=== PATIENT | male | born 1980 | race Caucasian/White ===

== ENCOUNTER 2019-08-30 16:31 | Inpatient (IN) | payer BC, OTHER ==
--- NOTE | 2019-08-30 16:34 | ERPHSYRPT ---
- History of Present Illness Time Seen by Provider: 08/30/19 17:10 Source: patient, family Exam Limitations: clinical condition Physician History: 39 y/o obese white male presents with 3 day h/o first left lower quadrant abd pain followed by n/v/d fever and body aches. temperature as high as 104.7 F. pt was getting confused at home. pt took tylenol earlier today but could not hold it down. never had anything like this before. pt denies photophobia and denies neck pain. Timing/Duration: day(s) (3), worse Severity: moderate Modifying Factors: Improves With: acetaminophen (could not hold down) Associated Symptoms: nausea, vomiting, abdominal pain, loss of appetite, weakness, other (diarrhea) Allergies/Adverse Reactions: BEESTINGS Allergy (Severe, Uncoded 08/30/19 17:09) Home Medications: Ranitidine HCl [Zantac 75] 75 mg PO DAILY 08/30/19 [History] Hx Tetanus, Diphtheria Vaccination/Date Given: No Hx Influenza Vaccination/Date Given: No Hx Pneumococcal Vaccination/Date Given: No - Review of Systems Constitutional: Fever, Weakness Eyes: No Symptoms Ears, Nose, & Throat: No Symptoms Respiratory: No Symptoms Cardiac: No Symptoms Abdominal/Gastrointestinal: Abdominal Pain, Nausea, Vomiting, Diarrhea Genitourinary Symptoms: No Symptoms Musculoskeletal: No Symptoms Skin: No Symptoms Neurological: No Symptoms Psychological: No Symptoms Endocrine: No Symptoms Hematologic/Lymphatic: No Symptoms Immunological/Allergic: No Symptoms All Other Systems: Reviewed and Negative - Past Medical History Pertinent Past Medical History: Yes Neurological History: No Pertinent History ENT History: No Pertinent History Cardiac History: No Pertinent History Respiratory History: No Pertinent History Endocrine Medical History: No Pertinent History Musculoskeletal History: No Pertinent History GI Medical History: GERD History: No Pertinent History Psycho-Social History: No Pertinent History Male Reproductive Disorders: No Pertinent History - Past Surgical History Past Surgical History: Yes Neuro Surgical History: No Pertinent History Cardiac: No Pertinent History Respiratory: No Pertinent History Gastrointestinal: Hernia Repair Genitourinary: No Pertinent History Musculoskeletal: No Pertinent History Male Surgical History: No Pertinent History Other Surgical History: egd - Social History Smoking Status: Never smoker Exposure to second hand smoke: No Drug Use: none Patient Lives Alone: No - Nursing Vital Signs Nursing Vital Signs: Initial Vital Signs Temperature 102.7 F 08/30/19 16:53 Pulse Rate 100 H 08/30/19 16:53 Respiratory Rate 26 H 08/30/19 16:53 Blood Pressure 113/73 08/30/19 16:53 O2 Sat by Pulse Oximetry 97 08/30/19 16:53 Pain Scale Pain Intensity 0 - Physical Exam General Appearance: moderate distress, alert, obese Eye Exam: PERRL/EOMI, eyes nml inspection Ears, Nose, Throat Exam: normal ENT inspection, dry mucous membranes Neck Exam: normal inspection, non-tender, supple, full range of motion Respiratory Exam: normal breath sounds, lungs clear, airway intact, No chest tenderness, No respiratory distress Cardiovascular Exam: regular rate/rhythm, normal heart sounds, normal peripheral pulses Gastrointestinal/Abdomen Exam: soft, normal bowel sounds, tenderness (mild left lower quad), No guarding, No rebound Rectal Exam: not done Back Exam: normal inspection, normal range of motion, No CVA tenderness, No vertebral tenderness Extremity Exam: normal inspection, normal range of motion, pelvis stable Neurologic Exam: alert, oriented x 3, cooperative, prepress specialist II-XII nml as tested Skin Exam: normal color, warm, dry Lymphatic Exam: No adenopathy SpO2 Interpretation: normal O2 Delivery: Room Air - Course Nursing assessment & vital signs reviewed: Yes Ordered Tests: Active Orders 24 hr Category Date Time Status IV Insertion STAT Care 08/30/19 16:51 Active ABDOMEN AND PELVIS W/0 CONTRAS [CT] Stat Exams 08/30/19 18:25 Taken CHEST 1 VIEW (PORTABLE) Stat Exams 08/30/19 20:53 Taken BLOOD CULTURE Stat Lab 08/30/19 17:52 Received CBC W DIFF Stat Lab 08/30/19 17:10 Completed CMP Stat Lab 08/30/19 17:10 Completed Lactic Acid Stat Lab 08/30/19 17:22 Completed [place] Screen Stat Lab 08/30/19 Completed UA W/RFX UR CULTURE Stat Lab 08/30/19 19:30 Completed Transfer Order Routine Transfer 08/30/19 Ordered Medication Summary Generic Name Dose Route Start Last Admin Trade Name Freq PRN Reason Stop Dose Admin Sodium Chloride 1,000 mls @ 999 mls/hr 08/30/19 20:54 08/30/19 21:20 Sodium Chloride 0.9% 1000 Ml IV 08/30/19 21:54 999 mls/hr .Q1H1M STA Administration Discontinued Medications Generic Name Dose Route Start Last Admin Trade Name Levon PRN Reason Stop Dose Admin Acetaminophen 650 mg 08/30/19 18:25 08/30/19 18:31 Tylenol 325 Mg PO 08/30/19 18:26 650 mg STAT STA Administration Acetaminophen Confirm 08/30/19 18:29 Tylenol 325 Mg Administered 08/30/19 18:30 Dose 650 mg .ROUTE .STK-MED ONE Hydromorphone HCl 0.5 mg 08/30/19 19:16 08/30/19 19:26 Hydromorphone 1 Mg/Ml Ampule IV 08/30/19 19:17 0.5 mg STAT ONE Administration Hydromorphone HCl Confirm 08/30/19 19:25 Hydromorphone 1 Mg/Ml Ampule Administered 08/30/19 19:26 Dose 1 mg .ROUTE .STK-MED ONE Sodium Chloride Confirm 08/30/19 16:49 Sodium Chloride 0.9% 1000 Ml Administered 08/30/19 16:50 Dose 1,000 mls @ ud .ROUTE .STK-MED ONE Sodium Chloride 1,000 mls @ 999 mls/hr 08/30/19 16:51 08/30/19 18:15 Sodium Chloride 0.9% 1000 Ml IV 08/30/19 17:51 Infused .Q1H1M STA Infusion Sodium Chloride Confirm 08/30/19 18:22 Sodium Chloride 0.9% 1000 Ml Administered 08/30/19 18:23 Dose 1,000 mls @ ud .ROUTE .STK-MED ONE Sodium Chloride 1,000 mls @ 999 mls/hr 08/30/19 18:26 08/30/19 19:32 Sodium Chloride 0.9% 1000 Ml IV 08/30/19 19:26 Infused .Q1H1M STA Infusion Ceftriaxone Sodium/Dextrose 1 g in 50 mls @ 100 mls/hr 08/30/19 21:09 21:20 Rocephin 1 Gm-D5w 50 Ml Bag IV 08/30/19 21:38 100 ml/hr STAT STA 100 mls/hr Administration Azithromycin 500 mg in 250 mls @ 250 mls/hr 08/30/19 21:09 08/30/19 21:21 Zithromax 500 Mg/ 250 Ml Nacl Premix IV 08/30/19 22:08 250 ml/hr STAT STA 250 mls/hr Administration Azithromycin Confirm 08/30/19 21:14 Zithromax 500 Mg/ 250 Ml Nacl Premix Administered 08/30/19 21:15 Dose 500 mg in 250 mls @ ud IV .STK-MED ONE Sodium Chloride Confirm 08/30/19 21:14 Sodium Chloride 0.9% 1000 Ml Administered 08/30/19 21:15 Dose 1,000 mls @ ud .ROUTE .STK-MED ONE Ceftriaxone Sodium/Dextrose Confirm 08/30/19 21:14 Rocephin 1 Gm-D5w 50 Ml Bag Administered 08/30/19 21:15 Dose 1 g in 50 mls @ ud IV .STK-MED ONE Ibuprofen 600 mg 08/30/19 20:54 08/30/19 21:19 Motrin 600 Mg PO 08/30/19 20:55 600 mg STAT ONE Administration Ibuprofen Confirm 08/30/19 21:14 Motrin 600 Mg Administered 08/30/19 21:15 Dose 600 mg .ROUTE .STK-MED ONE Lab/Rad Data: Laboratory Result Diagrams 08/30/19 17:10 08/30/19 17:10 Laboratory Results 08/30/19 08/30/19 08/30/19 Range/Units Unknown 19:30 17:52 WBC (4.0-10.5) K/mm3 RBC (4.1-5.6) M/mm3 Hgb (12.5-18.0) gm/dl Hct (42-50) % MCV (78-100) fl MCH (26-32) pg MCHC (32-36) g/dl RDW (11.5-14.0) % Plt Count (150-450) K/mm3 MPV (6-9.5) fl Gran % (36.0-66.0) % Eos # (Auto) (0-0.5) Absolute Lymphs (auto) (1.0-4.6) Absolute Monos (auto) (0.0-1.3) Lymphocytes % (24.0-44.0) % Monocytes % (0.0-12.0) % Eosinophils % (0.00-5.0) % Basophils % (0.0-0.4) % Absolute Granulocytes (1.4-6.9) Basophils # (0-0.4) Sodium (137-145) mmol/L Potassium (3.5-5.1) mmol/L Chloride (98-107) mmol/L Carbon Dioxide (22-30) mmol/L Anion Gap (5-15) MEQ/L BUN (9-20) mg/dL Creatinine (0.66-1.25) mg/dL Estimated GFR ML/MIN Glucose (74-106) mg/dL Lactic Acid (0.4-2.0) Calcium (8.4-10.2) mg/dL Total Bilirubin (0.2-1.3) mg/dL AST (17-59) U/L ALT (0-50) U/L Alkaline Phosphatase (38-126) U/L Serum Total Protein (6.3-8.2) g/dL Albumin (3.5-5.0) g/dL Urine Color ZHOU (YELLOW) Urine Appearance CLEAR (CLEAR) Urine pH 6.0 (5-6) Ur Specific [place] 1.023 (1.005-1.025) Urine Protein NEGATIVE (Negative) Urine Ketones SMALL (NEGATIVE) Urine Blood NEGATIVE (0-5) Max/ul Urine Nitrite NEGATIVE (NEGATIVE) Urine Bilirubin NEGATIVE (NEGATIVE) Urine Urobilinogen 4 (0-1) mg/dL Ur Leukocyte Esterase NEGATIVE (NEGATIVE) Urine WBC (Auto) 0-2 (0-5) /HPF Urine RBC (Auto) 0-2 (0-2) /HPF U Epithel Cells (Auto) NONE (FEW) /HPF Urine Bacteria (Auto) NONE SEEN (NEGATIVE) /HPF Urine Mucus (Auto) SLIGHT (NEGATIVE) /HPF Urine Culture Reflexed NO (NO) Urine Glucose NEGATIVE (NEGATIVE) mg/dL Monoscreen NEGATIVE (Negative) Influenza Type A Ag NEGATIVE (NEGATIVE) Influenza Type B Ag NEGATIVE (NEGATIVE) RSV (PCR) NEGATIVE (Negative) Group A Strep Antibody NEGATIVE (NEGATIVE) 08/30/19 08/30/19 08/30/19 Range/Units 17:22 17:10 17:10 WBC 11.1 H (4.0-10.5) K/mm3 RBC 5.13 (4.1-5.6) M/mm3 Hgb 15.0 (12.5-18.0) gm/dl Hct 45.7 (42-50) % MCV 89.1 (78-100) fl MCH 29.2 (26-32) pg MCHC 32.8 (32-36) g/dl RDW 13.2 (11.5-14.0) % Plt Count 236 (150-450) K/mm3 MPV 10.5 H (6-9.5) fl Gran % 84.4 H (36.0-66.0) % Eos # (Auto) 0.03 (0-0.5) Absolute Lymphs (auto) 0.89 L (1.0-4.6) Absolute Monos (auto) 0.78 (0.0-1.3) Lymphocytes % 8.0 L (24.0-44.0) % Monocytes % 7.0 (0.0-12.0) % Eosinophils % 0.3 (0.00-5.0) % Basophils % 0.3 (0.0-0.4) % Absolute Granulocytes 9.36 H (1.4-6.9) Basophils # 0.03 (0-0.4) Sodium 138 (137-145) mmol/L Potassium 4.1 (3.5-5.1) mmol/L Chloride 100 (98-107) mmol/L Carbon Dioxide 24 (22-30) mmol/L Anion Gap 17.6 H (5-15) MEQ/L BUN 12 (9-20) mg/dL Creatinine 1.12 (0.66-1.25) mg/dL Estimated GFR > 60.0 ML/MIN Glucose 113 H (74-106) mg/dL Lactic Acid 1.9 (0.4-2.0) Calcium 9.1 (8.4-10.2) mg/dL Total Bilirubin 1.40 H (0.2-1.3) mg/dL AST 45 (17-59) U/L ALT 38 (0-50) U/L Alkaline Phosphatase 78 (38-126) U/L Serum Total Protein 7.7 (6.3-8.2) g/dL Albumin 4.3 (3.5-5.0) g/dL Urine Color (YELLOW) Urine Appearance (CLEAR) Urine pH (5-6) Ur Specific [place] (1.005-1.025) Urine Protein (Negative) Urine Ketones (NEGATIVE) Urine Blood (0-5) Max/ul Urine Nitrite (NEGATIVE) Urine Bilirubin (NEGATIVE) Urine Urobilinogen (0-1) mg/dL Ur Leukocyte Esterase (NEGATIVE) Urine WBC (Auto) (0-5) /HPF Urine RBC (Auto) (0-2) /HPF U Epithel Cells (Auto) (FEW) /HPF Urine Bacteria (Auto) (NEGATIVE) /HPF Urine Mucus (Auto) (NEGATIVE) /HPF Urine Culture Reflexed (NO) Urine Glucose (NEGATIVE) mg/dL Monoscreen (Negative) Influenza Type A Ag (NEGATIVE) Influenza Type B Ag (NEGATIVE) RSV (PCR) (Negative) Group A Strep Antibody (NEGATIVE) - Progress Progress: improved, re-examined Progress Note: 08/30/19 20:58 ct abd/pelvis-no acute intraabd abnormality. pt states he is 100% better. his headache, body aches and appetite have sig improved. angela clear liquids. 08/30/19 21:[address] hinojosa re this pt. i reviewed pt hx, labs, xray results with her. she accepts pt for obs placement. rocephin and zithromax ok. lactic acid nl 08/30/19 21:40 Counseled pt/family regarding: lab results, diagnosis, need for follow-up, rad results - Departure Departure Disposition: Observation Clinical Impression: Pneumonia, Fever, Sepsis associated hypotension Condition: Stable Critical Care Time: Yes Critical Care Time(excluding separately billable procedures): Critical 30-74 mins Referrals: GAMA COLBY MD [Primary Care Provider] -
[2019-08-30] MEDS ORDERED: Sodium Chloride 0.9% 1000 ML 1,000 ML ONE ×3 (16:49→21:14)
[2019-08-30] MEDS ORDERED: Sodium Chloride 0.9% 1000 ML 1,000 ML IV STA ×3 (16:51→20:54)
[2019-08-30 17:31] LABS: Lactic Acid 1.9 (0.4-2.0)
[2019-08-30 17:39] LABS: Absolute Neutrophil Ct (ANC) 9.36 (1.4-6.9); BASOPHIL % 0.3 % (0.0-0.4); Basophil (Absolute #) 0.03 (0-0.4); Eosinophil % 0.3 % (0.00-5.0); Eosinophil (Absolute #) 0.03 (0-0.5); Hematocrit 45.7 % (42-50); Lymphocyte (Absolute #) 0.89 (1.0-4.6); Mean Cell Volume 89.1 fl (78-100); Mean Corpuscular Hemoglobin 29.2 pg (26-32); Mean Corpuscular Hgb Concent. 32.8 g/dl (32-36); Mean Platelet Volume 10.5 fl (6-9.5); Monocyte (Absolute #) 0.78 (0.0-1.3); Neutrophil % 84.4 % (36.0-66.0); Platelet Count 236 K/mm3 (150-450); Red Blood Count 5.13 M/mm3 (4.1-5.6); Red Cell Distribution Width 13.2 % (11.5-14.0); White Blood Count 11.1 K/mm3 (4.0-10.5)
[2019-08-30 17:50] LABS: ALBUMIN 4.3 g/dL (3.5-5.0); ALKALINE PHOSPHATASE 78 U/L (38-126); ANION GAP 17.6 MEQ/L (5-15); BLOOD UREA NITROGEN 12 mg/dL (9-20); CHLORIDE 100 mmol/L (98-107); Calcium 9.1 mg/dL (8.4-10.2); Carbon Dioxide 24 mmol/L (22-30); Creatinine 1 1.12 mg/dL (0.66-1.25); Glucose 113 mg/dL (74-106); Potassium 4.1 mmol/L (3.5-5.1); SGOT/AST 45 U/L (17-59); SGPT/ALT 38 U/L (0-50); SODIUM 138 mmol/L (137-145); Total Protein 7.7 g/dL (6.3-8.2)
[2019-08-30] MEDS ORDERED: TYLENOL 325 MG PO STA (18:25)
[2019-08-30] MEDS ORDERED: TYLENOL 325 MG ONE (18:29)
[2019-08-30 18:34] LABS: Group A Strep NEGATIVE (NEGATIVE); INFLUENZA A NEGATIVE (NEGATIVE); INFLUENZA B NEGATIVE (NEGATIVE); RESPIRATORY SYNCTIAL VIRUS NEGATIVE (Negative)
[2019-08-30] MEDS ORDERED: Hydromorphone 1 mg/ml Ampule IV ONE (19:16)
[2019-08-30] MEDS ORDERED: Hydromorphone 1 mg/ml Ampule ONE (19:25)
[2019-08-30 19:53] LABS: Appearance CLEAR (CLEAR); Bilirubin NEGATIVE (NEGATIVE); Blood NEGATIVE Ery/ul (0-5); Glucose NEGATIVE (NEGATIVE); Ketones SMALL (NEGATIVE); Leukocyte Esterase NEGATIVE (NEGATIVE); Mucus SLIGHT /HPF (NEGATIVE); Nitrite NEGATIVE (NEGATIVE); Protein,Urine Dip NEGATIVE (Negative); RBC 0-2 /HPF (0-2); Specific Gravity 1.023 (1.005-1.025); Urobilinogen 4 mg/dL (0-1); WBC 0-2 /HPF (0-5)
[2019-08-30 19:56] LABS: Bacteria NONE SEEN /HPF (NEGATIVE)
[2019-08-30] MEDS ORDERED: MOTRIN 600 MG PO ONE (20:54)
[2019-08-30] MEDS ORDERED: ROCEPHIN 1 Gm-D5w 50 ml Bag** 1 G/50 ML IVPB IV STA (21:09)
[2019-08-30] MEDS ORDERED: Zithromax 500 MG/ 250 ML NaCl Premix 500 MG/250 ML IVPB IV STA (21:09)
[2019-08-30] MEDS ORDERED: MOTRIN 600 MG ONE (21:14)
[2019-08-30] MEDS ORDERED: ROCEPHIN 1 Gm-D5w 50 ml Bag** 1 G/50 ML IVPB IV ONE (21:14)
[2019-08-30] MEDS ORDERED: Zithromax 500 MG/ 250 ML NaCl Premix 500 MG/250 ML IVPB IV ONE (21:14)
[2019-08-30] MEDS ORDERED: PROVENTIL 2.5 MG/3 ML NEB IH PRN (22:31)
[2019-08-30] MEDS: TYLENOL 325 MG PO PRN (22:36)
[2019-08-30] MEDS: Sodium Chloride 0.9% 1000 ML 1,000 ML IV SCH (23:25)
[2019-08-31 05:24] LABS: Absolute Neutrophil Ct (ANC) 5.14 (1.4-6.9); BASOPHIL % 0.3 % (0.0-0.4); Basophil (Absolute #) 0.02 (0-0.4); Eosinophil % 2.3 % (0.00-5.0); Eosinophil (Absolute #) 0.17 (0-0.5); Hematocrit 43.4 % (42-50); Hemoglobin 14.3 gm/dl (12.5-18.0); Mean Corpuscular Hgb Concent. 32.9 g/dl (32-36); Mean Platelet Volume 10.3 fl (6-9.5); Monocyte (Absolute #) 0.89 (0.0-1.3); Monocytes % 12.2 % (0.0-12.0); Neutrophil % 70.2 % (36.0-66.0); Platelet Count 182 K/mm3 (150-450); Red Blood Count 4.77 M/mm3 (4.1-5.6); Red Cell Distribution Width 13.4 % (11.5-14.0); White Blood Count 7.3 K/mm3 (4.0-10.5)
[2019-08-31 05:39] LABS: ANION GAP 11.3 MEQ/L (5-15); BLOOD UREA NITROGEN 11 mg/dL (9-20); CHLORIDE 105 mmol/L (98-107); Carbon Dioxide 28 mmol/L (22-30); Creatinine 1 0.89 mg/dL (0.66-1.25); Glucose 105 mg/dL (74-106); Potassium 4.1 mmol/L (3.5-5.1); SODIUM 140 mmol/L (137-145)
[2019-08-31] MEDS: TYLENOL 325 MG PO PRN ×3 (06:31→16:27)
[2019-08-31] MEDS ORDERED: TORAdol 30 mg Injection ONE (07:33)
[2019-08-31] MEDS ORDERED: TORAdol 30 mg Injection IV ONE ×2 (07:40→21:00)
[2019-08-31] MEDS: Sodium Chloride 0.9% 1000 ML 1,000 ML IV SCH ×2 (08:16→20:42)
--- NOTE | 2019-08-31 08:27 | PCM.HP ---
History of Present Illness - Chief Complaint Chief Complaint: pneumonia, sepsis Date: 08/31/19 History of Present Illness: Mr.CHAMBERS SAM is a 39 year old male. Pt. presented to ER after starting to feel ill Wednesday, then went to work Wednesday and left early. Pt. remained in bed until presentation to er, he has had lightheaded, changes in mental status, dark urine, n/v/d markedly - Review of Systems Constitutional: Fever, Chills, Fatigue, Malaise, Night Sweats Eyes: No Symptoms Ears, Nose, & Throat: No Symptoms Respiratory: Cough, Other (Pain in the left chest) Cardiac: Chest Pain Abdominal/Gastrointestinal: Nausea, Vomiting, Diarrhea, Appetite Changes Genitourinary Symptoms: No Dysuria Musculoskeletal: No Back Pain, No Neck Pain Skin: No Rash Neurological: Dizziness, Headache, Other (Notes in and out coherence yesterday) Endocrine: No Symptoms Hematologic/Lymphatic: No Symptoms Immunological/Allergic: No Symptoms Medications & Allergies Home Medications: Home Medication List Ranitidine HCl [Zantac 75] 75 mg PO DAILY 08/30/19 [History Confirmed 08/30/19] Allergies/Adverse Reactions: Allergies Allergy/AdvReac Type Severity Reaction Status Date / Time BEESTINGS Allergy Severe Uncoded 08/30/19 17:09 - Past Medical History Past Medical History: Yes Neurological History: No Pertinent History ENT History: No Pertinent History Cardiac History: No Pertinent History Respiratory History: No Pertinent History Endocrine Medical History: No Pertinent History Musculoskelatal History: No Pertinent History GI Medical History: GERD History: No Pertinent History Pyscho-Social History: No Pertinent History Male Reproductive Disorders: No Pertinent History Comment: IBS - Past Surgical History Past Surgical History: Yes Neuro Surgical History: No Pertinent History Cardiac History: No Pertinent History Respiratory Surgery: No Pertinent History GI Surgical History: Hernia Repair Genitourinary Surgical Hx: No Pertinent History Musculskeletal Surgical Hx: No Pertinent History Male Surgical History: No Pertinent History Other Surgical History: egd - Social History Smoking Status: Never smoker Exposure to second hand smoke: No Alcohol: None Drug Use: none - Physical Exam Vital Signs: Vital Signs - 24 hr Temp Pulse Resp BP Pulse Ox 08/31/19 08:00 98.9 F 88 19 130/62 08/31/19 07:53 22 08/31/19 07:18 85 110/57 95 08/31/19 06:32 97 08/31/19 06:30 98.9 F 86 20 130/62 96 08/31/19 04:00 18 08/31/19 03:51 97.6 F 71 18 120/53 97 08/31/19 00:00 18 08/30/19 22:37 99.6 F 81 17 119/73 93 L 08/30/19 22:35 94 L 08/30/19 21:55 77 18 94 L 08/30/19 21:30 99.9 F 80 18 87/44 96 08/30/19 20:10 84 18 94/53 96 08/30/19 19:07 102.5 F 92 H 18 109/72 95 08/30/19 17:53 97 H 124/85 97 08/30/19 16:53 102.7 F 100 H 26 H 113/73 97 General Appearance: no apparent distress Neurologic Exam: alert, cooperative, normal mood/affect Eye Exam: PERRL/EOMI, eyes nml inspection Ears, Nose, Throat Exam: normal ENT inspection, moist mucous membranes Neck Exam: normal inspection Respiratory Exam: normal breath sounds, chest tenderness Cardiovascular Exam: regular rate/rhythm Gastrointestinal/Abdomen Exam: soft, normal bowel sounds Rectal Exam: deferred Back Exam: normal inspection Extremity Exam: normal inspection Skin Exam: normal color, warm, dry, No rash Lymphatic Exam: No adenopathy Results - Labs Lab/Micro Results: Lab Results-Last 24 Hours 08/30/19 08/30/19 08/30/19 Range/Units 17:10 17:10 17:22 WBC 11.1 H (4.0-10.5) K/mm3 RBC 5.13 (4.1-5.6) M/mm3 Hgb 15.0 (12.5-18.0) gm/dl Hct 45.7 (42-50) % MCV 89.1 (78-100) fl MCH 29.2 (26-32) pg MCHC 32.8 (32-36) g/dl RDW 13.2 (11.5-14.0) % Plt Count 236 (150-450) K/mm3 MPV 10.5 H (6-9.5) fl Gran % 84.4 H (36.0-66.0) % Eos # (Auto) 0.03 (0-0.5) Absolute Lymphs (auto) 0.89 L (1.0-4.6) Absolute Monos (auto) 0.78 (0.0-1.3) Lymphocytes % 8.0 L (24.0-44.0) % Monocytes % 7.0 (0.0-12.0) % Eosinophils % 0.3 (0.00-5.0) % Basophils % 0.3 (0.0-0.4) % Absolute Granulocytes 9.36 H (1.4-6.9) Basophils # 0.03 (0-0.4) Sodium 138 (137-145) mmol/L Potassium 4.1 (3.5-5.1) mmol/L Chloride 100 (98-107) mmol/L Carbon Dioxide 24 (22-30) mmol/L Anion Gap 17.6 H (5-15) MEQ/L BUN 12 (9-20) mg/dL Creatinine 1.12 (0.66-1.25) mg/dL Estimated GFR > 60.0 ML/MIN Glucose 113 H (74-106) mg/dL Lactic Acid 1.9 (0.4-2.0) Calcium 9.1 (8.4-10.2) mg/dL Total Bilirubin 1.40 H (0.2-1.3) mg/dL AST 45 (17-59) U/L ALT 38 (0-50) U/L Alkaline Phosphatase 78 (38-126) U/L Serum Total Protein 7.7 (6.3-8.2) g/dL Albumin 4.3 (3.5-5.0) g/dL Urine Color (YELLOW) Urine Appearance (CLEAR) Urine pH (5-6) Ur Specific [place] (1.005-1.025) Urine Protein (Negative) Urine Ketones (NEGATIVE) Urine Blood (0-5) Max/ul Urine Nitrite (NEGATIVE) Urine Bilirubin (NEGATIVE) Urine Urobilinogen (0-1) mg/dL Ur Leukocyte Esterase (NEGATIVE) Urine WBC (Auto) (0-5) /HPF Urine RBC (Auto) (0-2) /HPF U Epithel Cells (Auto) (FEW) /HPF Urine Bacteria (Auto) (NEGATIVE) /HPF Urine Mucus (Auto) (NEGATIVE) /HPF Urine Culture Reflexed (NO) Urine Glucose (NEGATIVE) mg/dL Monoscreen (Negative) Influenza Type A Ag (NEGATIVE) Influenza Type B Ag (NEGATIVE) RSV (PCR) (Negative) Group A Strep Antibody (NEGATIVE) 08/30/19 08/30/19 08/30/19 Range/Units 17:52 19:30 21:40 WBC (4.0-10.5) K/mm3 RBC (4.1-5.6) M/mm3 Hgb (12.5-18.0) gm/dl Hct (42-50) % MCV (78-100) fl MCH (26-32) pg MCHC (32-36) g/dl RDW (11.5-14.0) % Plt Count (150-450) K/mm3 MPV (6-9.5) fl Gran % (36.0-66.0) % Eos # (Auto) (0-0.5) Absolute Lymphs (auto) (1.0-4.6) Absolute Monos (auto) (0.0-1.3) Lymphocytes % (24.0-44.0) % Monocytes % (0.0-12.0) % Eosinophils % (0.00-5.0) % Basophils % (0.0-0.4) % Absolute Granulocytes (1.4-6.9) Basophils # (0-0.4) Sodium (137-145) mmol/L Potassium (3.5-5.1) mmol/L Chloride (98-107) mmol/L Carbon Dioxide (22-30) mmol/L Anion Gap (5-15) MEQ/L BUN (9-20) mg/dL Creatinine (0.66-1.25) mg/dL Estimated GFR ML/MIN Glucose (74-106) mg/dL Lactic Acid 0.9 (0.4-2.0) Calcium (8.4-10.2) mg/dL Total Bilirubin (0.2-1.3) mg/dL AST (17-59) U/L ALT (0-50) U/L Alkaline Phosphatase (38-126) U/L Serum Total Protein (6.3-8.2) g/dL Albumin (3.5-5.0) g/dL Urine Color ZHOU (YELLOW) Urine Appearance CLEAR (CLEAR) Urine pH 6.0 (5-6) Ur Specific [place] 1.023 (1.005-1.025) Urine Protein NEGATIVE (Negative) Urine Ketones SMALL (NEGATIVE) Urine Blood NEGATIVE (0-5) Max/ul Urine Nitrite NEGATIVE (NEGATIVE) Urine Bilirubin NEGATIVE (NEGATIVE) Urine Urobilinogen 4 (0-1) mg/dL Ur Leukocyte Esterase NEGATIVE (NEGATIVE) Urine WBC (Auto) 0-2 (0-5) /HPF Urine RBC (Auto) 0-2 (0-2) /HPF U Epithel Cells (Auto) NONE (FEW) /HPF Urine Bacteria (Auto) NONE SEEN (NEGATIVE) /HPF Urine Mucus (Auto) SLIGHT (NEGATIVE) /HPF Urine Culture Reflexed NO (NO) Urine Glucose NEGATIVE (NEGATIVE) mg/dL Monoscreen (Negative) Influenza Type A Ag NEGATIVE (NEGATIVE) Influenza Type B Ag NEGATIVE (NEGATIVE) RSV (PCR) NEGATIVE (Negative) Group A Strep Antibody NEGATIVE (NEGATIVE) 08/30/19 08/31/19 08/31/19 Range/Units Unknown 05:02 05:02 WBC 7.3 (4.0-10.5) K/mm3 RBC 4.77 (4.1-5.6) M/mm3 Hgb 14.3 (12.5-18.0) gm/dl Hct 43.4 (42-50) % MCV 91.0 (78-100) fl MCH 30.0 (26-32) pg MCHC 32.9 (32-36) g/dl RDW 13.4 (11.5-14.0) % Plt Count 182 (150-450) K/mm3 MPV 10.3 H (6-9.5) fl Gran % 70.2 H (36.0-66.0) % Eos # (Auto) 0.17 (0-0.5) Absolute Lymphs (auto) 1.10 (1.0-4.6) Absolute Monos (auto) 0.89 (0.0-1.3) Lymphocytes % 15.0 L (24.0-44.0) % Monocytes % 12.2 H (0.0-12.0) % Eosinophils % 2.3 (0.00-5.0) % Basophils % 0.3 (0.0-0.4) % Absolute Granulocytes 5.14 (1.4-6.9) Basophils # 0.02 (0-0.4) Sodium 140 (137-145) mmol/L Potassium 4.1 (3.5-5.1) mmol/L Chloride 105 (98-107) mmol/L Carbon Dioxide 28 (22-30) mmol/L Anion Gap 11.3 (5-15) MEQ/L BUN 11 (9-20) mg/dL Creatinine 0.89 (0.66-1.25) mg/dL Estimated GFR > 60.0 ML/MIN Glucose 105 (74-106) mg/dL Lactic Acid (0.4-2.0) Calcium 8.0 L (8.4-10.2) mg/dL Total Bilirubin (0.2-1.3) mg/dL AST (17-59) U/L ALT (0-50) U/L Alkaline Phosphatase (38-126) U/L Serum Total Protein (6.3-8.2) g/dL Albumin (3.5-5.0) g/dL Urine Color (YELLOW) Urine Appearance (CLEAR) Urine pH (5-6) Ur Specific [place] (1.005-1.025) Urine Protein (Negative) Urine Ketones (NEGATIVE) Urine Blood (0-5) Max/ul Urine Nitrite (NEGATIVE) Urine Bilirubin (NEGATIVE) Urine Urobilinogen (0-1) mg/dL Ur Leukocyte Esterase (NEGATIVE) Urine WBC (Auto) (0-5) /HPF Urine RBC (Auto) (0-2) /HPF U Epithel Cells (Auto) (FEW) /HPF Urine Bacteria (Auto) (NEGATIVE) /HPF Urine Mucus (Auto) (NEGATIVE) /HPF Urine Culture Reflexed (NO) Urine Glucose (NEGATIVE) mg/dL Monoscreen NEGATIVE (Negative) Influenza Type A Ag (NEGATIVE) Influenza Type B Ag (NEGATIVE) RSV (PCR) (Negative) Group A Strep Antibody (NEGATIVE) - Radiology Impressions Radiology Exams & Impressions: Radiology Procedures Category Date Time Status ABDOMEN AND PELVIS W/0 CONTRAS [CT] Stat Exams 08/30/19 18:25 Taken CHEST 1 VIEW (PORTABLE) Stat Exams 08/30/19 20:53 Taken - Other Procedures and Tests Respiratory Therapy 08/30/19 21:55 Oxygen Nasal Cannula 2 lpm 08/30/19 22:32 Respiratory Therapy Assessment DAILY Assessment/Plan (1) Chest wall pain Current Visit: Yes Status: Acute Assessment & Plan: IV toradol and tylenol, Troponin ordered Code(s): R07.89 - OTHER CHEST PAIN (2) Pneumonia Current Visit: Yes Status: Acute Qualifiers: Laterality: left Lung location: lower lobe of lung Assessment & Plan: Continue IV Rocephin and Azithromycin Code(s): J18.9 - PNEUMONIA, UNSPECIFIED ORGANISM (3) Sepsis associated hypotension Current Visit: Yes Status: Acute Assessment & Plan: IVF and Iv abx Code(s): A41.9 - SEPSIS, UNSPECIFIED ORGANISM; I95.9 - HYPOTENSION, UNSPECIFIED (4) Dehydration Current Visit: Yes Status: Acute Assessment & Plan: IVF Code(s): E86.0 - DEHYDRATION
--- NOTE | 2019-08-31 09:25 | XRAY ---
Indication: Left sided pain, fever, headache, dizziness, dehydration. Multiple contiguous axial images obtained through the abdomen and pelvis without contrast as ordered. Comparison: January 31, 2014. Lung bases demonstrate new incompletely visualized lingula airspace opacity without effusion. Stable tiny right lower lobe calcified granuloma. Right infrahilar chunky calcified nodes not previously imaged. Heart is not enlarged. Noncontrasted stomach and bowel loops appear nonobstructed. Normal appendix. No free fluid/air. Stable fatty hepatomegaly mild today measuring 20 cm in CC dimension. Spleen remains enlarged measuring 14.7 cm in greatest axial dimension. Remaining liver, gallbladder, pancreas, spleen, adrenal glands, kidneys, ureters, bladder, and aorta appear unremarkable for noncontrast exam. Osseous structures intact with mild lower thoracic degenerative changes. Stable small fatty left inguinal hernia. Impression: 1. Again fatty hepatomegaly, splenomegaly, small fatty left inguinal hernia, and evidence for old granulomatous disease. 2. New incompletely visualized lingula airspace disease. 3. Remaining CT abdomen/pelvis without contrast exam is negative. CT DI 35.17
--- NOTE | 2019-08-31 09:25 | XRAY ---
Indication: Left-sided pressure, fever, and cough. Comparison: None Portable apical lordotic chest demonstrates lingula infiltrate/atelectasis. Remaining heart, right lung, and bony thorax unremarkable.
[2019-08-31] MEDS: Pepcid 20 MG PO SCH (10:08)
[2019-08-31] MEDS: Zofran 4 MG/2 ML VIAL IV PRN (10:27)
[2019-08-31] MEDS ORDERED: Sodium Chloride 0.9% 1000 ML 1,000 ML IV STA (13:31)
[2019-08-31] MEDS: Naprosyn 500 MG PO PRN (13:50)
[2019-08-31] MEDS: Tums EX 750 MG PO SCH (14:36)
[2019-08-31] MEDS ORDERED: Naprosyn 500 MG PO SCH (15:00)
[2019-08-31] MEDS: DUONEB 0.5-3 MG/3 ml Neb IH SCH (18:44)
[2019-08-31] MEDS ORDERED: BENADRYL 50 MG/ML IV ONE (21:00)
[2019-08-31] MEDS ORDERED: Phenergan 25 MG INJ IV ONE (21:00)
[2019-08-31] MEDS: ROCEPHIN 1 Gm-D5w 50 ml Bag** 1 G/50 ML IVPB IV SCH (21:15)
[2019-08-31] MEDS: Zithromax 500 MG/ 250 ML NaCl Premix 500 MG/250 ML IVPB IV SCH (21:53)
[2019-09-01] MEDS: Zofran 4 MG/2 ML VIAL IV PRN (01:34)
[2019-09-01] MEDS: TYLENOL 325 MG PO PRN ×2 (02:12→07:24)
[2019-09-01 05:05] LABS: Hematocrit 38.3 % (42-50); Hemoglobin 12.4 gm/dl (12.5-18.0); Mean Cell Volume 90.3 fl (78-100); Mean Corpuscular Hemoglobin 29.2 pg (26-32); Mean Corpuscular Hgb Concent. 32.4 g/dl (32-36); Mean Platelet Volume 10.6 fl (6-9.5); Platelet Count 188 K/mm3 (150-450); Red Blood Count 4.24 M/mm3 (4.1-5.6); Red Cell Distribution Width 13.2 % (11.5-14.0); White Blood Count 6.6 K/mm3 (4.0-10.5)
[2019-09-01] MEDS: Naprosyn 500 MG PO PRN (06:06)
[2019-09-01] MEDS: DUONEB 0.5-3 MG/3 ml Neb IH SCH ×4 (06:58→19:31)
[2019-09-01] MEDS: Sodium Chloride 0.9% 1000 ML 1,000 ML IV SCH ×2 (07:24→16:30)
[2019-09-01] MEDS: Pepcid 20 MG PO SCH (08:19)
[2019-09-01] MEDS: Tums EX 750 MG PO SCH ×2 (08:19→14:41)
--- NOTE | 2019-09-01 08:35 | XRAY ---
Indication: Follow-up pneumonia. Comparison: August 30, 2019. Portable chest unchanged again demonstrating stable lingula infiltrate/atelectasis. Remaining heart, right lung, and bony thorax unremarkable.
[2019-09-01] MEDS: ULTRAM 50 MG PO PRN ×2 (08:56→16:35)
[2019-09-01] MEDS: BENADRYL 50 MG/ML IV PRN ×2 (12:44→18:34)
[2019-09-01] MEDS: TORAdol 30 mg Injection IV PRN ×2 (12:45→18:31)
[2019-09-01 12:48] LABS: TSH, 3RD Generation 1.24 mIU/L (0.47-4.68)
[2019-09-01] MEDS: Phenergan 25 MG INJ IV PRN (18:32)
[2019-09-01] MEDS: ROCEPHIN 1 Gm-D5w 50 ml Bag** 1 G/50 ML IVPB IV SCH (21:32)
[2019-09-01] MEDS: Zithromax 500 MG/ 250 ML NaCl Premix 500 MG/250 ML IVPB IV SCH (22:06)
[2019-09-02] MEDS: ULTRAM 50 MG PO PRN ×2 (01:47→16:04)
[2019-09-02] MEDS: Sodium Chloride 0.9% 1000 ML 1,000 ML IV SCH ×3 (01:47→15:08)
[2019-09-02] MEDS: Phenergan 25 MG INJ IV PRN (05:14)
[2019-09-02] MEDS: TORAdol 30 mg Injection IV PRN (05:17)
[2019-09-02] MEDS: BENADRYL 50 MG/ML IV PRN (05:17)
[2019-09-02 05:49] LABS: Hematocrit 38.7 % (42-50); Hemoglobin 12.4 gm/dl (12.5-18.0); Mean Corpuscular Hemoglobin 28.8 pg (26-32); Platelet Count 213 K/mm3 (150-450); Red Cell Distribution Width 13.5 % (11.5-14.0); White Blood Count 7.8 K/mm3 (4.0-10.5)
[2019-09-02 05:51] LABS: ANION GAP 14.6 MEQ/L (5-15); BLOOD UREA NITROGEN 10 mg/dL (9-20); CHLORIDE 107 mmol/L (98-107); Calcium 8.1 mg/dL (8.4-10.2); Carbon Dioxide 23 mmol/L (22-30); Creatinine 1 0.68 mg/dL (0.66-1.25); Glucose 113 mg/dL (74-106); Potassium 3.9 mmol/L (3.5-5.1); SODIUM 141 mmol/L (137-145)
[2019-09-02] MEDS: DUONEB 0.5-3 MG/3 ml Neb IH SCH ×4 (07:06→19:34)
[2019-09-02] MEDS: Pepcid 20 MG PO SCH (09:41)
[2019-09-02] MEDS: Tums EX 750 MG PO SCH ×2 (09:43→14:30)
[2019-09-02] MEDS ORDERED: TYLENOL EXTRA STRENGTH 500 MG PO STA (13:56)
[2019-09-02] MEDS ORDERED: MOTRIN 400 MG PO ONE (13:57)
[2019-09-02] MEDS: Decadron 4 MG PO SCH ×2 (14:28→21:38)
[2019-09-02] MEDS: Cyclobenzaprine 10 MG PO PRN ×2 (14:29→21:38)
--- NOTE | 2019-09-02 16:09 | PCM.NOTE ---
Date and Time: 09/02/19 1603 Subjective Assessment: He is feeling "terrible" but unable to tell me if it's because of his pneumonia or his BURKS. He is complaining of migraine, does get migraines periodically, with photo- and phono-phobia. At home he takes two tylenol and two ibuprofen and generally gets it to go away. Has been taking toradol here with some apparent relief but pt does not really note any relief. BURKS 8/ right now, states it's been going on x 5d, but is worse today than it has been. Denies any paresthesias. Haley po. Complains he did not sleep last night. - Review of Systems Constitutional: No Fever Respiratory: Cough Neurological: Headache Objective Exam General Appearance: moderate distress (initially sitting with pillowslip covering his head. 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, other (informatics specialist 5/ 5 bilat) Skin Exam: normal color, warm, dry, No rash Eye Exam: EOMI, eyes nml inspection Ears, Nose, Throat Exam: moist mucous membranes Neck Exam: normal inspection Respiratory Exam: normal breath sounds, lungs clear, No crackles/rales, No rhonchi, No wheezing Cardiovascular Exam: regular rate/rhythm, normal heart sounds, No murmur Extremity Exam: normal inspection, No pedal edema, No swelling Back Exam: normal inspection, No rash OBJECTIVE DATA Vital Signs: Vital Signs - 24 hr Temp Pulse Resp BP Pulse Ox 09/02/19 15:07 76 20 95 09/02/19 12:27 98.8 F 75 20 141/85 94 L 09/02/19 11:13 72 18 91 L 09/02/19 07:33 97.7 F 66 20 108/52 90 L 09/02/19 00:04 98.8 F 81 18 120/67 95 09/02/19 00:00 18 09/01/19 20:00 98.7 F 80 20 119/58 97 09/01/19 19:31 78 18 95 Pain Assessment - Last Documented Pain Intensity 4 Pain Scale Used 0-10 Pain Scale Intake and Output: Intake & Output 08/31/19 09/01/19 09/02/19 09/03/19 11:59 11:59 11:59 11:59 Intake Total 1887 4064 5159 120 Output Total 937 107 9673 200 Balance 1237 3414 4159 -80 Weight 156.2 kg 159.5 kg 156.6 kg Lab Results: Lab Results-Last 24 Hours 09/02/19 09/02/19 Range/Units 05:30 05:30 WBC 7.8 (4.0-10.5) K/mm3 RBC 4.30 (4.1-5.6) M/mm3 Hgb 12.4 L (12.5-18.0) gm/dl Hct 38.7 L (42-50) % MCV 90.0 (78-100) fl MCH 28.8 (26-32) pg MCHC 32.0 (32-36) g/dl RDW 13.5 (11.5-14.0) % Plt Count 213 (150-450) K/mm3 MPV 11.0 H (6-9.5) fl Sodium 141 (137-145) mmol/L Potassium 3.9 (3.5-5.1) mmol/L Chloride 107 (98-107) mmol/L Carbon Dioxide 23 (22-30) mmol/L Anion Gap 14.6 (5-15) MEQ/L BUN 10 (9-20) mg/dL Creatinine 0.68 (0.66-1.25) mg/dL Estimated GFR > 60.0 ML/MIN Glucose 113 H (74-106) mg/dL Calcium 8.1 L (8.4-10.2) mg/dL Radiology Exams: Radiology Procedures Category Date Time Status CHEST 1 VIEW (PORTABLE) Routine Exams 09/01/19 06:09 Completed Assessment/Plan (1) Pneumonia Current Visit: Yes Status: Acute Qualifiers: Laterality: left Lung location: lower lobe of lung Assessment & Plan: On rocephin and zithromax day #3. Code(s): J18.9 - PNEUMONIA, UNSPECIFIED ORGANISM (2) Migraine Current Visit: Yes Status: Acute Qualifiers: Migraine type: unspecified Status migrainosus presence: with status migrainosus Intractability: intractable Qualified Code(s): G43.911 - Migraine, unspecified, intractable, with status migrainosus Assessment & Plan: Will try the tylenol and ibuprofen (last dose of toradol early this morning per JAN). Start steroid, dexamethasone po. try flexeril. Neuro exam normal and no headache. Discussed imaging, but with his history of migraine and neg exam I don't feel this is necessary. Code(s): G43.909 - MIGRAINE, UNSP, NOT INTRACTABLE, WITHOUT STATUS MIGRAINOSUS
[2019-09-02] MEDS: ROCEPHIN 1 Gm-D5w 50 ml Bag** 1 G/50 ML IVPB IV SCH (21:39)
[2019-09-02] MEDS: Zithromax 500 MG/ 250 ML NaCl Premix 500 MG/250 ML IVPB IV SCH (22:40)
[2019-09-03] MEDS: Sodium Chloride 0.9% 1000 ML 1,000 ML IV SCH (02:42)
[2019-09-03] MEDS: Decadron 4 MG PO SCH ×3 (02:42→13:27)
[2019-09-03] MEDS: DUONEB 0.5-3 MG/3 ml Neb IH SCH ×2 (07:49→11:31)
[2019-09-03] MEDS: Pepcid 20 MG PO SCH (08:32)
[2019-09-03] MEDS: Tums EX 750 MG PO SCH ×2 (08:33→13:27)
[2019-09-03 12:34] VITALS: BP 131/78; PULSE 83; O2SAT 94
--- NOTE | 2019-09-03 14:41 | PCM.DS ---
Discharge Summary Date of Admission: 09/01/19 03:44 Admitting Physician: SALIMA VALENTIN DO Primary Care Provider: GAMA GONZALEZ Allergies Allergies BEESTINGS Allergy (Severe, Uncoded 08/30/19 17:09) Hospital Summary - Hospital Course Hospital Course: Pt is a 39 yo male pt of Dr. Gonzalez who was admitted through [facility] with pneumonia, fever, and sepsis associated hypotension. He was put on rocephin and zithromax and completed 3d of those antibiotics; zithromax was stopped on day #4 but he did get 4d of rocephin. His breathing improved quickly but his main complaint was headache. Yesterday his BURKS was worse, day #5 of migraine, so I added several meds including muscle relaxant and dexamethasone and he said after 1-2 doses he felt much better. Has not had either since 11 pm yesterday. This morning he is dressed and ready to d/c to home. Feeling much better. Vitals stable. Will be discharged to home on augmentin x 6d (10d total) and ventolin inhaler prn. F/u with PCP in 1 wk. - Vitals & Intake/Output Vital Signs: Vital Signs Temperature 98.7 F 09/03/19 12:33 Pulse Rate 83 09/03/19 12:33 Respiratory Rate 20 09/03/19 12:33 Blood Pressure 131/78 09/03/19 12:33 O2 Sat by Pulse Oximetry 94 L 09/03/19 12:33 Intake & Output: Intake & Output 09/01/19 09/02/19 09/03/19 09/04/19 11:59 11:59 11:59 11:59 Intake Total 4064 5159 3728 120 Output Total 650 1000 1250 Balance 3414 4159 2478 120 Weight 159.5 kg 156.6 kg 157 kg - Lab Result Diagrams: 09/02/19 05:30 09/02/19 05:30 Micro Results-Entire Visit: Microbiology 08/30/19 17:52 Blood Culture - Preliminary Blood NO GROWTH TO DATE 08/30/19 17:10 Blood Culture - Preliminary Blood NO GROWTH TO DATE - Procedures and Test Procedures and Tests throughout Hospitalization: Therapy Orders & Screens 08/30/19 21:55 Oxygen Nasal Cannula 2 lpm Comment: Respiratory Therapy Consult ROUTINE Comment: Reason For Exam: 08/30/19 22:32 Respiratory Therapy Assessment DAILY Comment: 08/31/19 07:19 EKG STAT Comment: Diagnosis: pneumonia, sepsis 09/01/19 07:09 Peak Expiratory Flow Rate ONCE Comment: Reason For Exam: Diagnosis: pneumonia, sepsis Discharge Exam General Appearance: no apparent distress, obese Neurologic Exam: alert, oriented x 3 Eye Exam: eyes nml inspection Ears, Nose, Throat Exam: moist mucous membranes Neck Exam: normal inspection Respiratory Exam: normal breath sounds, lungs clear, No rhonchi, No wheezing Cardiovascular Exam: regular rate/rhythm, normal heart sounds, No murmur Extremity Exam: normal inspection, No swelling, No tenderness Skin Exam: normal color, warm, dry, No rash Final Diagnosis/Problem List - Final Discharge Diagnosis/Problem (1) Pneumonia Current Visit: Yes Status: Acute Code(s): J18.9 - PNEUMONIA, UNSPECIFIED ORGANISM (2) Migraine Current Visit: Yes Status: Acute Code(s): G43.909 - MIGRAINE, UNSP, NOT INTRACTABLE, WITHOUT STATUS MIGRAINOSUS - Discharge Disposition: Home, Self-Care Condition: Good Prescriptions: New Amoxicillin/Potassium Clav [Augmentin 875-125 Tablet] 1 each PO BID #12 tablet Albuterol Sulfate [Ventolin Hfa] 18 gm IH Q4H PRN #1 [id number] PRN Reason: Cough Continue Ranitidine HCl [Zantac 75] 75 mg PO DAILY Additional Instructions: Some diarrhea is normal with an antibiotic; if it is excessive please let your doctor know. Follow up with: GAMA GONZALEZ MD [Primary Care Provider] - 1 Week
== END 2019-09-03 15:27 | disposition home or self-care (01) | DRG 193 ==
LOC: ED 16:31 → MED SURG 21:50 → OBSVTOIN 09-01 03:44
PROVIDERS: ADMIT Family Medicine; ATTEND Family Medicine
DX: J18.9 Pneumonia, unspecified organism (principal); A41.9 Sepsis, unspecified organism; I95.9 Hypotension, unspecified; G43.909 Migraine, unspecified, not intractable, without status migrainosus; R42 Dizziness and giddiness; R11.2 Nausea with vomiting, unspecified; E86.0 Dehydration; R07.89 Other chest pain; Z79.899 Other long term (current) drug therapy
CPT/HCPCS: 36000; 36415; 71045; 74176; 80048; 80053; 81001; 82607; 83036; 83605; 84443; 84484; 85025; 85027; 86308; 87040; 87631; 87651; 93005; 93268; 94150; 94640; 94760; 94762; 96360; 96361; 96365; 96368; 96374; 99285; 99291; G0378; J0456; J0696; J1170; J1200; J1885; J2405; J2550; J7609; A9270-GY

== ENCOUNTER 2020-11-12 06:19 | Emergency (ER) | payer BC, MEDICAID ==
[2020-11-12] MEDS ORDERED: TORAdol 30 mg Injection ONE (07:08)
[2020-11-12] MEDS ORDERED: Zofran 4 MG/2 ML VIAL ONE (07:08)
[2020-11-12] MEDS ORDERED: Hydromorphone 1 mg/ml Injection ONE (07:09)
[2020-11-12] MEDS ORDERED: Hydromorphone 1 mg/ml Injection IV ONE (07:21)
[2020-11-12] MEDS ORDERED: Zofran 4 MG/2 ML VIAL IV ONE (07:21)
[2020-11-12] MEDS ORDERED: Sodium Chloride 0.9% 1000 ML 1,000 ML IV STA (07:21)
[2020-11-12] MEDS ORDERED: TORAdol 30 mg Injection IV ONE (07:21)
--- NOTE | 2020-11-12 07:28 | ERPHSYRPT ---
- History of Present Illness Time Seen by Provider: 11/12/20 07:00 Historian: patient Exam Limitations: no limitations Patient Subjective Stated Complaint: PT C/O FLANK PAIN RADIATING TO ABD PAIN Triage Nursing Assessment: PT C/O LT FLANK PAIN, RADIATING TO LT FRONT ABD AREA. ABD LG, OBESE, SOFT WITH ACTIVE BS X4 QUAD, NONTENDER ON PALPATION. PT HAS HX OF KIDNEY STONES. THIS PAIN WOKE PT UP AROUND 0230, PT HAS BEEN PACING AT HOME, BUT PAIN JUST KEEPS GETTING WORSE. Physician History: This is an overweight white male who has a history of ureterolithiasis in the past and presents with sudden onset of left flank pain which radiates down the left lower quadrant and left groin. Onset was approximately 230 this morning. He is uncomfortable has nausea. He cannot sit still because of the pain. This feels exactly like his left ureterolithiasis episode in the past. He had no vomiting. He has no diarrhea. He has no chest pain or shortness of breath. Timing/Duration: today Activities at Onset: none Quality: sharpness, stabbing Abdominal Pain Onset Location: flank (Left) Pain Radiation: LLQ, groin (Left) Severity of Pain-Max: moderate Severity of Pain-Current: moderate Modifying Factors: Improves With: walking Associated Symptoms: diaphoresis, No chest pain, No diarrhea, No neck pain, No vomiting Previous symptoms: same symptoms as today Allergies/Adverse Reactions: BEESTINGS Allergy (Severe, Uncoded 08/30/19 17:09) Home Medications: Esomeprazole Magnesium [Nexium] 20 mg PO DAILY 11/12/20 [History] Hx Tetanus, Diphtheria Vaccination/Date Given: No Hx Influenza Vaccination/Date Given: No Hx Pneumococcal Vaccination/Date Given: No Immunizations Up to Date: No Travel Risk - International Travel Have you traveled outside of the country in past 3 weeks: No - Coronavirus Screening Are you exhibiting any of the following symptoms?: No Close contact with a COVID-19 positive Pt in past 14-21 Days: No - Review of Systems Constitutional: No Symptoms Eyes: No Symptoms Ears, Nose, & Throat: No Symptoms Respiratory: No Symptoms Cardiac: No Symptoms Abdominal/Gastrointestinal: Abdominal Pain (Pain that begins in the left flank radiates to left lower quadrant and left groin) Genitourinary Symptoms: Flank Pain (Left) Musculoskeletal: No Symptoms Skin: No Symptoms Neurological: No Symptoms Psychological: No Symptoms Endocrine: No Symptoms Hematologic/Lymphatic: No Symptoms Immunological/Allergic: No Symptoms All Other Systems: Reviewed and Negative - Past Medical History Pertinent Past Medical History: Yes Neurological History: No Pertinent History ENT History: No Pertinent History Cardiac History: No Pertinent History Respiratory History: No Pertinent History Endocrine Medical History: No Pertinent History Musculoskeletal History: No Pertinent History GI Medical History: GERD History: Other Psycho-Social History: No Pertinent History Male Reproductive Disorders: No Pertinent History Other Medical History: IBS, KIDNEY STONES - Past Surgical History Past Surgical History: Yes Neuro Surgical History: No Pertinent History Cardiac: No Pertinent History Respiratory: No Pertinent History Gastrointestinal: Hernia Repair Genitourinary: No Pertinent History Musculoskeletal: No Pertinent History Male Surgical History: No Pertinent History Other Surgical History: egd - Social History Smoking Status: Never smoker Exposure to second hand smoke: No Drug Use: none Patient Lives Alone: No - Nursing Vital Signs Nursing Vital Signs: Initial Vital Signs Temperature 98.3 F 11/12/20 06:34 Pulse Rate 88 11/12/20 06:34 Respiratory Rate 18 11/12/20 06:34 Blood Pressure 141/104 11/12/20 06:34 O2 Sat by Pulse Oximetry 99 11/12/20 06:34 Pain Scale Pain Intensity 4 - Physical Exam General Appearance: moderate distress, alert, anxiety, obese Eye Exam: PERRL/EOMI, eyes nml inspection Ears, Nose, Throat Exam: normal ENT inspection, moist mucous membranes Neck Exam: normal inspection, non-tender, supple, full range of motion Respiratory Exam: normal breath sounds, lungs clear, airway intact, No chest tenderness, No respiratory distress Cardiovascular Exam: regular rate/rhythm, normal heart sounds, normal peripheral pulses Gastrointestinal/Abdomen Exam: soft, normal bowel sounds, tenderness (Mild left lower quadrant) Rectal Exam: not done Back Exam: normal inspection, normal range of motion, CVA tenderness (Left), No vertebral tenderness Extremity Exam: normal inspection, normal range of motion, pelvis stable Neurologic Exam: alert, oriented x 3, cooperative, neckties painter II-XII nml as tested, normal mood/affect, nml cerebellar function, nml station & gait, sensation nml Skin Exam: normal color, warm, dry Lymphatic Exam: No adenopathy SpO2 Interpretation: normal SpO2: 99 O2 Delivery: Room Air - Course Nursing assessment & vital signs reviewed: Yes Ordered Tests: Active Orders 24 hr Category Date Time Status IV Insertion STAT Care 11/12/20 07:21 Active ABDOMEN AND PELVIS W/0 CONTRAS [CT] Stat Exams 11/12/20 07:21 Taken AMYLASE Stat Lab 11/12/20 07:15 Completed CBC W DIFF Stat Lab 11/12/20 07:15 Completed CMP Stat Lab 11/12/20 07:15 Completed CULTURE,URINE Stat Lab 11/12/20 07:48 Received LIPASE Stat Lab 11/12/20 07:15 Completed Lactic Acid Stat Lab 11/12/20 07:21 Completed UA W/RFX UR CULTURE Stat Lab 11/12/20 07:48 Completed Medication Summary Generic Name Dose Route Start Last Admin Trade Name Freq PRN Reason Stop Dose Admin Sodium Chloride 1,000 mls @ 999 mls/hr 11/12/20 07:21 11/12/20 07:48 Sodium Chloride 0.9% 1000 Ml IV 11/12/20 08:21 999 mls/hr .Q1H1M STA Administration Discontinued Medications Generic Name Dose Route Start Last Admin Trade Name Freq PRN Reason Stop Dose Admin Hydromorphone HCl Confirm 11/12/20 07:09 Hydromorphone 1 Mg/Ml Injection Administered 11/12/20 07:10 Dose 1 mg .ROUTE .STK-MED ONE Hydromorphone HCl 1 mg 11/12/20 07:21 11/12/20 07:33 Hydromorphone 1 Mg/Ml Injection IV 11/12/20 07:22 1 mg STAT ONE Administration Sodium Chloride Confirm 11/12/20 07:47 Sodium Chloride 0.9% 1000 Ml Administered 11/12/20 07:48 Dose 1,000 mls @ ud .ROUTE .STK-MED ONE Ketorolac Tromethamine Confirm 11/12/20 07:08 Toradol 30 Mg Injection Administered 11/12/20 07:09 Dose 30 mg .ROUTE .STK-MED ONE Ketorolac Tromethamine 30 mg 11/12/20 07:21 11/12/20 07:34 Toradol 30 Mg Injection IV 11/12/20 07:22 30 mg STAT ONE Administration Ondansetron HCl Confirm 11/12/20 07:08 Zofran 4 Mg/2 Ml Vial Administered 11/12/20 07:09 Dose 4 mg .ROUTE .STK-MED ONE Ondansetron HCl 4 mg 11/12/20 07:21 11/12/20 07:33 Zofran 4 Mg/2 Ml Vial IV 11/12/20 07:22 4 mg STAT ONE Administration Lab/Rad Data: Laboratory Result Diagrams 11/12/20 07:15 11/12/20 07:15 Laboratory Results 11/12/20 11/12/20 11/12/20 Range/Units 07:48 07:21 07:15 WBC (4.0-10.5) K/mm3 RBC (4.1-5.6) M/mm3 Hgb (12.5-18.0) gm/dl Hct (42-50) % MCV (78-100) fl MCH (26-32) pg MCHC (32-36) g/dl RDW (11.5-14.0) % Plt Count (150-450) K/mm3 MPV (7.5-11.0) fl Gran % (36.0-66.0) % Eos # (Auto) (0-0.5) Absolute Lymphs (auto) (1.0-4.6) Absolute Monos (auto) (0.0-1.3) Lymphocytes % (24.0-44.0) % Monocytes % (0.0-12.0) % Eosinophils % (0.00-5.0) % Basophils % (0.0-0.4) % Absolute Granulocytes (1.4-6.9) Basophils # (0-0.4) Sodium 139 (137-145) mmol/L Potassium 4.3 (3.5-5.1) mmol/L Chloride 104 (98-107) mmol/L Carbon Dioxide 28 (22-30) mmol/L Anion Gap 11.9 (5-15) MEQ/L BUN 18 (9-20) mg/dL Creatinine 0.92 (0.66-1.25) mg/dL Estimated GFR > 60.0 ML/MIN Glucose 126 H (74-106) mg/dL Lactic Acid 1.9 (0.4-2.0) Calcium 9.5 (8.4-10.2) mg/dL Total Bilirubin 0.50 (0.2-1.3) mg/dL AST 26 (17-59) U/L ALT 39 (0-50) U/L Alkaline Phosphatase 68 (38-126) U/L Serum Total Protein 6.9 (6.3-8.2) g/dL Albumin 4.2 (3.5-5.0) g/dL Amylase 52 (30-110) U/L Lipase 42 (23-300) U/L Urine Color YELLOW (YELLOW) Urine Appearance CLEAR (CLEAR) Urine pH 5.0 (5-6) Ur Specific [place] 1.027 (1.005-1.025) Urine Protein NEGATIVE (Negative) Urine Ketones NEGATIVE (NEGATIVE) Urine Blood SMALL (0-5) Max/ul Urine Nitrite NEGATIVE (NEGATIVE) Urine Bilirubin NEGATIVE (NEGATIVE) Urine Urobilinogen 2 (0-1) mg/dL Ur Leukocyte Esterase NEGATIVE (NEGATIVE) Urine WBC (Auto) 3-5 (0-5) /HPF Urine RBC (Auto) 3-5 (0-2) /HPF U Epithel Cells (Auto) NONE (FEW) /HPF Urine Bacteria (Auto) RARE (NEGATIVE) /HPF Urine Mucus (Auto) SLIGHT (NEGATIVE) /HPF Urine Culture Reflexed YES (NO) Urine Glucose NEGATIVE (NEGATIVE) mg/dL 11/12/20 Range/Units 07:15 WBC 8.8 (4.0-10.5) K/mm3 RBC 5.09 (4.1-5.6) M/mm3 Hgb 14.8 (12.5-18.0) gm/dl Hct 46.3 (42-50) % MCV 91.0 (78-100) fl MCH 29.1 (26-32) pg MCHC 32.0 (32-36) g/dl RDW 13.5 (11.5-14.0) % Plt Count 283 (150-450) K/mm3 MPV 11.1 H (7.5-11.0) fl Gran % 72.0 H (36.0-66.0) % Eos # (Auto) 0.07 (0-0.5) Absolute Lymphs (auto) 1.77 (1.0-4.6) Absolute Monos (auto) 0.56 (0.0-1.3) Lymphocytes % 20.2 L (24.0-44.0) % Monocytes % 6.4 (0.0-12.0) % Eosinophils % 0.8 (0.00-5.0) % Basophils % 0.6 (0.0-0.4) % Absolute Granulocytes 6.32 (1.4-6.9) Basophils # 0.05 (0-0.4) Sodium (137-145) mmol/L Potassium (3.5-5.1) mmol/L Chloride (98-107) mmol/L Carbon Dioxide (22-30) mmol/L Anion Gap (5-15) MEQ/L BUN (9-20) mg/dL Creatinine (0.66-1.25) mg/dL Estimated GFR ML/MIN Glucose (74-106) mg/dL Lactic Acid (0.4-2.0) Calcium (8.4-10.2) mg/dL Total Bilirubin (0.2-1.3) mg/dL AST (17-59) U/L ALT (0-50) U/L Alkaline Phosphatase (38-126) U/L Serum Total Protein (6.3-8.2) g/dL Albumin (3.5-5.0) g/dL Amylase (30-110) U/L Lipase (23-300) U/L Urine Color (YELLOW) Urine Appearance (CLEAR) Urine pH (5-6) Ur Specific Pat[place] (1.005-1.025) Urine Protein (Negative) Urine Ketones (NEGATIVE) Urine Blood (0-5) Max/ul Urine Nitrite (NEGATIVE) Urine Bilirubin (NEGATIVE) Urine Urobilinogen (0-1) mg/dL Ur Leukocyte Esterase (NEGATIVE) Urine WBC (Auto) (0-5) /HPF Urine RBC (Auto) (0-2) /HPF U Epithel Cells (Auto) (FEW) /HPF Urine Bacteria (Auto) (NEGATIVE) /HPF Urine Mucus (Auto) (NEGATIVE) /HPF Urine Culture Reflexed (NO) Urine Glucose (NEGATIVE) mg/dL - Progress Progress: improved, pain not gone completely, re-examined Progress Note: 11/12/20 08:11 CT scan of the abdomen and pelvis shows a nonobstructing left approximately mid ureteral stone. Counseled pt/family regarding: lab results, diagnosis, need for follow-up, rad results - Departure Departure Disposition: Home Clinical Impression: Left ureteral calculus Condition: Stable Critical Care Time: No Referrals: GAMA COLBY MD [NON-STAFF PHY W/O PRIVILEGES] - Additional Instructions: Drink plenty of fluids. Take ibuprofen 600 mg orally with food 3 times a day for the next 5 days. Follow-up with your urologist later today by phone to make arrangements for follow-up appointment. Prescriptions: Hydrocodone/APAP 5/325 [[place] 5/325 mg] 1 each PO Q8H PRN PRN #9 tablet MDD 3 PRN Reason: Pain
[2020-11-12 07:41] LABS: Absolute Neutrophil Ct (ANC) 6.32 (1.4-6.9); BASOPHIL % 0.6 % (0.0-0.4); Basophil (Absolute #) 0.05 (0-0.4); Eosinophil % 0.8 % (0.00-5.0); Eosinophil (Absolute #) 0.07 (0-0.5); Hematocrit 46.3 % (42-50); Hemoglobin 14.8 gm/dl (12.5-18.0); Lymphocyte (Absolute #) 1.77 (1.0-4.6); Lymphocytes % 20.2 % (24.0-44.0); Mean Corpuscular Hemoglobin 29.1 pg (26-32); Mean Platelet Volume 11.1 fl (7.5-11.0); Monocyte (Absolute #) 0.56 (0.0-1.3); Monocytes % 6.4 % (0.0-12.0); Platelet Count 283 K/mm3 (150-450); Red Blood Count 5.09 M/mm3 (4.1-5.6); Red Cell Distribution Width 13.5 % (11.5-14.0); White Blood Count 8.8 K/mm3 (4.0-10.5)
[2020-11-12] MEDS ORDERED: Sodium Chloride 0.9% 1000 ML 1,000 ML ONE (07:47)
[2020-11-12 07:48] LABS: Appearance CLEAR (CLEAR); Bacteria RARE /HPF (NEGATIVE); Bilirubin NEGATIVE (NEGATIVE); Blood SMALL Ery/ul (0-5); Glucose NEGATIVE (NEGATIVE); Ketones NEGATIVE (NEGATIVE); Leukocyte Esterase NEGATIVE (NEGATIVE); Mucus SLIGHT /HPF (NEGATIVE); Nitrite NEGATIVE (NEGATIVE); Protein,Urine Dip NEGATIVE (Negative); Specific Gravity 1.027 (1.005-1.025); Urobilinogen 2 mg/dL (0-1)
[2020-11-12 08:04] LABS: ALBUMIN 4.2 g/dL (3.5-5.0); ALKALINE PHOSPHATASE 68 U/L (38-126); AMYLASE 52 U/L (30-110); ANION GAP 11.9 MEQ/L (5-15); BLOOD UREA NITROGEN 18 mg/dL (9-20); CHLORIDE 104 mmol/L (98-107); Calcium 9.5 mg/dL (8.4-10.2); Carbon Dioxide 28 mmol/L (22-30); Creatinine 1 0.92 mg/dL (0.66-1.25); EST GLOMERULAR FILTRATION RATE > 60.0 ML/MIN; Glucose 126 mg/dL (74-106); LIPASE 42 U/L (23-300); Potassium 4.3 mmol/L (3.5-5.1); SGOT/AST 26 U/L (17-59); SGPT/ALT 39 U/L (0-50); SODIUM 139 mmol/L (137-145); Total Protein 6.9 g/dL (6.3-8.2)
--- NOTE | 2020-11-12 08:49 | XRAY ---
Indication: Left flank pain. Nausea. History stones. Multiple contiguous axial images obtained through the abdomen and pelvis without contrast using renal stone protocol. Comparison: August 30, 2019. Lung bases are clear again with incidental right lower lobe and distal paraesophageal calcified granuloma. Heart is not enlarged. 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 Left mid ureter demonstrates new 2 mm calculus in the upper moiety, approximately L4 level with very minimal hydronephrosis and minimal perinephric stranding. Noncontrasted stomach and bowel loops appear nonobstructed. Normal appendix. No free fluid/air. Stable fatty 20 cm hepatomegaly and 14.2 cm splenomegaly. Remaining liver, gallbladder, pancreas, spleen, Fernanda glands, kidneys, ureters, bladder, and aorta are unremarkable for noncontrast exam. Osseous structures intact again with mild lower thoracic degenerative changes. Stable small fatty left inguinal hernia. Impression: 1. 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 2. Stable incidental fatty hepatomegaly, splenomegaly, small fatty left inguinal hernia, and old granulomatous disease.
[2020-11-12 09:02] VITALS: BP 101/51; PULSE 64; O2SAT 97
== END 2020-11-12 09:17 | disposition home or self-care (01) ==
LOC: ED 06:19
DX: N20.1 Calculus of ureter (principal)
CPT/HCPCS: 36000; 36415; 74176; 80053; 81001; 82150; 83605; 83690; 85025; 87086; 96360; 96374; 96375; 99284; J1170; J1885; J2405

== ENCOUNTER 2021-11-26 09:31 | Emergency (ER) | payer MEDICAID ==
[2021-11-26 09:54] VITALS: BP 125/68; PULSE 73; O2SAT 100
--- NOTE | 2021-11-26 10:01 | ERPHSYRPT ---
- History of Present Illness Time Seen by Provider: 11/26/21 10:00 Historian: patient Exam Limitations: no limitations Patient Subjective Stated Complaint: Pt states that for the past 4-5 weeks he has had some off and on pain in the right side/back, pt thought that it might be muscular but he does have a hx of kidney stones and IBS Triage Nursing Assessment: Pt brought self to the ER, vitals wnl, rates pain as 2/10, denies pain with palpatation to abdomen or to flank, states that if he moves a certain way that it will take his breath away, pain will radiate across his abdomen but then settle back to the right side, bowel sounds heard in all 4 quadrants, last bowel movement today, doesn't appear to be in any distress Physician History: This is an obese 41-year-old white male patient with a history of gastroesop hageal reflux disease and 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 Patient has a history of ureterolithiasis in the past. He states that this pain is different but it has been intermittently present in the last 4 to 5 weeks and at times worsening. In the last few days he has moved a certain way and the pain almost feels like it is in his abdominal cavity and then radiates into the right flank but never fully resolves itself. He has not had any nausea vomiting or diarrhea. He denies chest pain. He denies shortness of breath. He has had no known hematuria or dysuria. Timing/Duration: week(s) (4 to 5 weeks), intermittent, worse Quality: aching Abdominal Pain Onset Location: flank (Right side) Pain Radiation: flank (Right flank) Severity of Pain-Max: moderate Severity of Pain-Current: mild Modifying Factors: Improves With: movement (Certain movements and twisting elicits worse pain) Associated Symptoms: No chest pain, No fever/chills, No loss of appetite, No nausea, No shortness of breath, No testicular pain, No vomiting Previous symptoms: no prior history (Not prior to 4 to 5 weeks ago) Allergies/Adverse Reactions: BEESTINGS Allergy (Severe, Uncoded 08/30/19 17:09) Home Medications: Esomeprazole Magnesium [Nexium] 20 mg PO DAILY 11/12/20 [History] Hx Tetanus, Diphtheria Vaccination/Date Given: No Hx Influenza Vaccination/Date Given: No Hx Pneumococcal Vaccination/Date Given: No Travel Risk - International Travel Have you traveled outside of the country in past 3 weeks: No - Coronavirus Screening Are you exhibiting any of the following symptoms?: No Close contact with a COVID-19 positive Pt in past 14-21 Days: No - Vaccine Status Have you recieved a Covid-19 vaccination: No 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 - Vaccination Dates Date of 2cond Vaccination (if applicable): 08/2021 - Review of Systems Constitutional: No Symptoms Eyes: No Symptoms Ears, Nose, & Throat: No Symptoms Respiratory: No Symptoms Cardiac: No Symptoms Abdominal/Gastrointestinal: No Symptoms Genitourinary Symptoms: Flank Pain (Right side) Musculoskeletal: No Symptoms Skin: No Symptoms Neurological: No Symptoms Psychological: No Symptoms Endocrine: No Symptoms Hematologic/Lymphatic: No Symptoms Immunological/Allergic: No Symptoms All Other Systems: Reviewed and Negative - Past Medical History Pertinent Past Medical History: Yes Neurological History: No Pertinent History ENT History: No Pertinent History Cardiac History: No Pertinent History Respiratory History: No Pertinent History Endocrine Medical History: No Pertinent History Musculoskeletal History: No Pertinent History GI Medical History: GERD History: Other Psycho-Social History: No Pertinent History Male Reproductive Disorders: No Pertinent History Other Medical History: IBS, KIDNEY STONES - Past Surgical History Past Surgical History: Yes Neuro Surgical History: No Pertinent History Cardiac: No Pertinent History Respiratory: No Pertinent History Gastrointestinal: Hernia Repair Genitourinary: No Pertinent History Musculoskeletal: No Pertinent History Male Surgical History: No Pertinent History Other Surgical History: . - Social History Smoking Status: Never smoker Exposure to second hand smoke: No Drug Use: none Patient Lives Alone: No - Nursing Vital Signs Nursing Vital Signs: Initial Vital Signs Temperature 97.0 F 11/26/21 09:40 Pulse Rate 73 11/26/21 09:40 Blood Pressure 125/68 11/26/21 09:40 O2 Sat by Pulse Oximetry 100 11/26/21 09:40 Pain Scale Pain Intensity 2 - Physical Exam General Appearance: no apparent distress, alert, anxiety, obese Eye Exam: PERRL/EOMI, eyes nml inspection Ears, Nose, Throat Exam: normal ENT inspection, moist mucous membranes Neck Exam: normal inspection, non-tender, supple, full range of motion Respiratory Exam: normal breath sounds, lungs clear, airway intact, No chest tenderness, No respiratory distress Cardiovascular Exam: regular rate/rhythm, normal heart sounds, normal peripheral pulses Gastrointestinal/Abdomen Exam: soft, normal bowel sounds, No tenderness, No guarding Rectal Exam: not done Back Exam: normal inspection, normal range of motion, CVA tenderness (Right), No vertebral tenderness Extremity Exam: normal inspection, normal range of motion, pelvis stable Neurologic Exam: alert, oriented x 3, cooperative, 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, normal mood/affect, nml cerebellar function, nml station & gait, sensation nml Skin Exam: normal color, warm, dry Lymphatic Exam: No adenopathy SpO2 Interpretation: normal SpO2: 100 O2 Delivery: Room Air - Course Nursing assessment & vital signs reviewed: Yes Ordered Tests: Active Orders 24 hr Category Date Time Status IV Insertion STAT Care 11/26/21 10:00 Active ABDOMEN AND PELVIS W/0 CONTRAS [CT] Stat Exams 11/26/21 10:01 Completed AMYLASE Stat Lab 11/26/21 10:10 Completed CBC W DIFF Stat Lab 11/26/21 10:10 Completed CMP Stat Lab 11/26/21 10:10 Completed LIPASE Stat Lab 11/26/21 10:10 Completed Lactic Acid Stat Lab 11/26/21 10:00 Completed UA W/RFX UR CULTURE Stat Lab 11/26/21 10:01 Ordered Lab/Rad Data: Laboratory Result Diagrams 11/26/21 10:10 11/26/21 10:10 Laboratory Results 11/26/21 11/26/21 11/26/21 Range/Units 10:10 10:10 10:00 WBC 7.2 (4.0-10.5) K/mm3 RBC 5.00 (4.1-5.6) M/mm3 Hgb 14.6 (12.5-18.0) gm/dl Hct 45.6 (42-50) % MCV 91.2 (78-100) fl MCH 29.2 (26-32) pg MCHC 32.0 (32-36) g/dl RDW 13.3 (11.5-14.0) % Plt Count 262 (150-450) K/mm3 MPV 10.4 (7.5-11.0) fl Gran % 63.8 (36.0-66.0) % Eos # (Auto) 0.08 (0-0.5) Absolute Lymphs (auto) 2.12 (1.0-4.6) Absolute Monos (auto) 0.37 (0.0-1.3) Lymphocytes % 29.4 (24.0-44.0) % Monocytes % 5.1 (0.0-12.0) % Eosinophils % 1.1 (0.00-5.0) % Basophils % 0.6 (0.0-0.4) % Absolute Granulocytes 4.59 (1.4-6.9) Basophils # 0.04 (0-0.4) Sodium 138 (137-145) mmol/L Potassium 4.2 (3.5-5.1) mmol/L Chloride 106 (98-107) mmol/L Carbon Dioxide 29 (22-30) mmol/L Anion Gap 6.8 (5-15) MEQ/L BUN 12 (9-20) mg/dL Creatinine 0.88 (0.66-1.25) mg/dL Estimated GFR > 60.0 ML/MIN Glucose 102 (74-106) mg/dL Lactic Acid 0.9 (0.4-2.0) Calcium 8.6 (8.4-10.2) mg/dL Total Bilirubin 0.90 (0.2-1.3) mg/dL AST 24 (17-59) U/L ALT 26 (0-50) U/L Alkaline Phosphatase 60 (38-126) U/L Serum Total Protein 6.6 (6.3-8.2) g/dL Albumin 3.9 (3.5-5.0) g/dL Amylase 41 (30-110) U/L Lipase 27 (23-300) U/L - Progress Progress: pain not gone completely, re-examined Progress Note: 11/26/21 10:57 CAT scan of the abdomen pelvis without contrast shows no acute intra-abdominal or intrapelvic abnormality. Counseled pt/family regarding: diagnosis, need for follow-up, rad results - Departure Departure Disposition: Home Clinical Impression: Back pain Condition: Stable Critical Care Time: No Referrals: JAVON MURPHY JR [Primary Care Provider] - Follow up/PCP as directed Additional Instructions: Take medication as prescribed. Follow-up with your prescribing provider for further evaluation and management. Prescriptions: Prednisone 10 mg [Deltasone 10 mg] 10 mg PO TID #12 tablet Orphenadrine Citrate 100 mg [Norflex 100 MG Tablet] 100 mg PO BID #10 tab
[2021-11-26 10:26] LABS: Absolute Neutrophil Ct (ANC) 4.59 (1.4-6.9); Basophil (Absolute #) 0.04 (0-0.4); Eosinophil % 1.1 % (0.00-5.0); Eosinophil (Absolute #) 0.08 (0-0.5); Hematocrit 45.6 % (42-50); Hemoglobin 14.6 gm/dl (12.5-18.0); Lymphocyte (Absolute #) 2.12 (1.0-4.6); Lymphocytes % 29.4 % (24.0-44.0); Mean Cell Volume 91.2 fl (78-100); Mean Corpuscular Hemoglobin 29.2 pg (26-32); Mean Platelet Volume 10.4 fl (7.5-11.0); Monocyte (Absolute #) 0.37 (0.0-1.3); Monocytes % 5.1 % (0.0-12.0); Neutrophil % 63.8 % (36.0-66.0); Platelet Count 262 K/mm3 (150-450); Red Cell Distribution Width 13.3 % (11.5-14.0); White Blood Count 7.2 K/mm3 (4.0-10.5)
[2021-11-26 10:37] LABS: ALBUMIN 3.9 g/dL (3.5-5.0); ALKALINE PHOSPHATASE 60 U/L (38-126); AMYLASE 41 U/L (30-110); ANION GAP 6.8 MEQ/L (5-15); BLOOD UREA NITROGEN 12 mg/dL (9-20); CHLORIDE 106 mmol/L (98-107); Calcium 8.6 mg/dL (8.4-10.2); Carbon Dioxide 29 mmol/L (22-30); Creatinine 1 0.88 mg/dL (0.66-1.25); EST GLOMERULAR FILTRATION RATE > 60.0 ML/MIN; Glucose 102 mg/dL (74-106); LIPASE 27 U/L (23-300); Potassium 4.2 mmol/L (3.5-5.1); SGOT/AST 24 U/L (17-59); SGPT/ALT 26 U/L (0-50); SODIUM 138 mmol/L (137-145); Total Protein 6.6 g/dL (6.3-8.2)
--- NOTE | 2021-11-26 10:53 | XRAY ---
Indication: Right flank pain 3-4 weeks. Multiple contiguous axial images obtained through the abdomen and pelvis without contrast. Comparison: November 12, 2020. Lung bases remain clear of infiltrate and effusion. Incidental right lower lobe, distal paraesophageal, and right infrahilar calcified granulomas. Heart not enlarged. Noncontrasted stomach and bowel loops with normal appendix. No free fluid/air. Again incidental 20 cm fatty hepatomegaly, 13.6 cm splenomegaly, and partial duplication left renal collecting system. Remaining liver, gallbladder, pancreas, spleen, adrenal glands, kidneys, ureters, bladder, and aorta are unremarkable for noncontrast exam. Osseous structures intact again with mild lower thoracic degenerative changes. Stable small fatty left inguinal hernia. Impression: 1. Again fatty hepatomegaly, splenomegaly, small fatty left inguinal hernia, and old granulomatous disease. 2. Remaining CT abdomen/pelvis without contrast exam is negative.
[2021-11-26 11:33] LABS: Appearance CLEAR (CLEAR); Bilirubin NEGATIVE (NEGATIVE); Blood NEGATIVE Ery/ul (0-5); Glucose NEGATIVE (NEGATIVE); Ketones NEGATIVE (NEGATIVE); Leukocyte Esterase NEGATIVE (NEGATIVE); Mucus SLIGHT /HPF (NEGATIVE); Nitrite NEGATIVE (NEGATIVE); Protein,Urine Dip NEGATIVE (Negative); Specific Gravity 1.014 (1.005-1.025); Urobilinogen NEGATIVE mg/dL (0-1)
[2021-11-26 11:37] LABS: Bacteria NONE SEEN /HPF (NEGATIVE); RBC NONE SEEN /HPF (0-2)
[2021-11-26 15:58] LABS: Total Cells Counted 100
[2021-11-26 15:59] LABS: Lymphocytes 5 % (24-44); Monocyte 7 % (0.0-12.0)
[2021-11-26 16:00] LABS: BAND 1 % (0.0-2.0); Neutrophils 87 % (36.-66.); Platelet Estimate NORMAL (NORMAL)
== END 2021-11-26 11:18 | disposition home or self-care (01) ==
LOC: ED 09:31
DX: M54.9 Dorsalgia, unspecified (principal); R10.9 Unspecified abdominal pain; K21.9 Gastro-esophageal reflux disease without esophagitis; K58.9 Irritable bowel syndrome, unspecified; Z87.442 Personal history of urinary calculi; Z79.52 Long term (current) use of systemic steroids
CPT/HCPCS: 36000; 36415; 74176; 80053; 81001; 82150; 83605; 83690; 85025; 99284